=== PATIENT | female | born 1990 | race Caucasian/White ===

== ENCOUNTER 2016-05-31 20:59 | Emergency (ER) | payer OTHER ==
[~2016-05-31 20:59] MED LIST: ALPRAZOLAM0.5 MG PO; ESCITALOPRAM20 MG PO; FIORICET 325 MG1 TAB PO; ONDANSETRON8 M1 SL; PERCOCET 5-3251 EACH PO; PRENATAL1 TA2 PO; ZOFRAN ODT4 M1 SL; ZOFRAN4 MG PO; [UNRECOGNIZED DRUG - OTHER] PO
--- NOTE | 2016-05-31 21:18 | ED GI/GU/ABDOMINAL COMPLAINT ---
See Addendum History of Present Illness General Chief Complaint: General Adult Stated Complaint: GALLBLADDER PAIN, X 1 DAY Source: patient Exam Limitations: no limitations Vital Signs & Intake/Output Vital Signs & Intake/Output Vital Signs Date Time Temp Pulse Resp B/P Pulse O2 O2 Flow FiO2 Ox Delivery Rate 05/31 2312 98.6 88 18 110/60 98 Room Air 05/31 2113 98 Room Air 05/31 2103 97.3 92 20 101/69 97 Allergies Coded Allergies: buspirone (From BUSPAR) (PER PT HAS OPPOSITE EFFECT MAKES ME MORE ANXIOUS ) clarithromycin (From BIAXIN) (GI UPSET 05/31/16) adhesive (RASH/BLISTERS 11/26/15) lorazepam (COMBATIVE 11/26/15) Reconcile Medications Acetaminophen/Butalbital/Caf (Fioricet 325 MG-50 MG-40 MG) 1 TAB TAB 1 TAB PO PRN MIGRAINE (Reported) Alprazolam 0.5 MG TABLET 1 TAB PO BID PRN ANXIETY (Reported) Aripiprazole (Abilify) 2 MG TABLET 1 TAB PO DAILY MENTAL HEALTH (Reported) Escitalopram Oxalate 20 MG TABLET 1 TAB PO DAILY ANXIETY (Reported) Hydroxyzine Pamoate 25 MG CAPSULE 1 CAP PO BID PRN ANXIETY (Reported) Ketorolac Tromethamine 10 MG TABLET 1 TAB PO TID PRN PAIN Levothyroxine Sodium (Synthroid) 150 MCG TABLET 1 TAB PO DAILY THYROID ( Reported) Ondansetron HCl (Zofran) 4 MG TABLET 1 TAB PO Q6-8P PRN NAUSEA Oxycodone HCl/Acetaminophen (Percocet 5-325 MG Tablet) 5 MG-325 MG TABLET 1 TAB PO BID PRN PAIN Pantoprazole Sodium 40 MG TABLET. 1 TAB PO DAILY GI (Reported) Triage Note: PER PT CO "GALL BLADDER PAIN X 24 HRS, NO PLAN FOR SURGERY, PT REPORTS USUALLY OCCURS 1-2 TIMES A YR. Triage Nurses Notes Reviewed? yes ? N Is pt currently ? No Onset: Gradual Duration: constant Timing: recent history Quality/Severity: moderate Severity Numbers: 7 Location: epigastric Radiation: RUQ Activities at Onset: eating HPI: Patient is a 26-year-old female with past medical history of opiate dependency, gallstones, hypothyroidism, anxiety who presents to emergency room stating that yesterday after eating dinner approximately 3 hours later she had acute onset of epigastric pain with mild radiation to right upper quadrant. Patient states that symptoms feel very similar to previous gallstone episodes. Patient has not followed up with a surgeon for her recurrent gallstones. Patient states that today she is able tolerate by mouth however eating and drinking makes pain worse and patient then has nausea due to the significant pain. No medications given prior to arrival. Denies fevers but does have chills. Denies any cough shortness of breath are pain jaw pain. Denies any dysuria hematuria vaginal bleeding vaginal discharge. Denies any recent NSAID use but does state that she has significant history remotely of this due to her 10 year abstinence from opiates. Denies any significant alcohol use. (GOVIND BESS) Past History Travel History Traveled to [place] past 21 day No Medical History Any Pertinent Medical History? see below for history Neurological: NONE EENT: NONE Cardiovascular: MYOCARDITIS Respiratory: NONE Gastrointestinal: GALL STONES Hepatic: NONE Renal: NONE Musculoskeletal: NONE Psychiatric: anxiety, depression, PTSD Endocrine: THYROID Surgical History Surgical History: appendectomy, Psychosocial History What is your primary language Mosotho Tobacco Use: Current Daily Use Daily Tobacco Use Amount/Type: => 5 Cigarettes daily Family History Hx Contributory? No (GOVIND BESS) Review of Systems Review of Systems Constitutional: Reports: see HPI, chills. EENTM: Reports: no symptoms. Respiratory: Reports: no symptoms. Cardiovascular: Reports: no symptoms. GI: Reports: see HPI, abdominal pain, nausea. Genitourinary: Reports: no symptoms. Musculoskeletal: Reports: no symptoms. Skin: Reports: no symptoms. Neurological/Psychological: Reports: no symptoms. Hematologic/Endocrine: Reports: no symptoms. Immunologic/Allergic: Reports: no symptoms. All Other Systems: Reviewed and Negative (GOVIDN BESS) Physical Exam Physical Exam General Appearance: no apparent distress, obese Gastrointestinal: normal bowel sounds, soft, MODERATE EPIGASTRIC TENDERNESS, NO RIGHT LOWER QUADRANT MILD RIGHT UPPER QUADRANT TENDERNESS NO PERITONEAL SIGNS NO REBOUND TENDERNESS Comments: HEENT: Normal EENT exam, extraocular motion intact, no nystagmus. Pupils equally round and reactive to light and accommodation. Nose is atraumatic. External auditory canal and Tympanic membranes clear. Pharynx normal. No swelling or edema. Neck: Supple, no lymphadenopathy, normal range of motion without pain or tenderness Back: Nontender, no CVA tenderness Cardiovascular: Regular rate and rhythms no murmurs rubs or gallops, normal JVP Respiratory: Chest nontender. No respiratory distress.breath sounds clear to auscultation bilaterally Extremity: No edema, no calf tenderness to palpation, normal and equal pulses. Neuro: Alert oriented x3, motor sensory normal, Skin: No appreciable rash on exposed skin, skin is warm and dry. Psych: Mood and affect is normal, memory and judgment is normal. Core Measures ACS in differential dx? No Severe Sepsis Present: No Septic Shock Present: No (ADRIÁN HERNANDEZ,GOVIND) Progress Differential Diagnosis: AAA, AMI, appendicitis, biliary colic, bowel obstruction , colon cancer, cholecystitis, diverticulitis, ectopic , endometritis, esophageal varices, gastritis, hepatitis, hernia, hemorrhoids, ischemic bowel, inflamm bowel dis, intrauterine , kidney stone, Kathy-Ton tear, ovarian cyst, ovarian torsion, pancreatitis, PID/cervicitis, peptic ulcer, PUD/ GERD, perforated viscous, SBO, threatened AB, UTI/pyelo Plan of Care: Orders Procedure Date/time Status Add-on Test (ER Only) 05/31 2211 Active HUMAN BETA HCG SCREEN 05/31 2148 Complete PARTIAL THROMBOPLASTIN TIME 05/31 2118 Complete PROTHROMBIN TIME 05/31 2118 Complete LIPASE 05/31 2118 Complete DIRECT BILIRUBIN 05/31 2118 Complete COMPREHENSIVE METABOLIC PANEL 05/31 2118 Complete CBC WITHOUT DIFFERENTIAL 05/31 2118 Complete AMYLASE 05/31 2118 Complete TYPE & SCREEN (NOT X-MATCH) 05/31 2118 Complete Laboratory Tests 05/31/162148: Anion Gap 12, Estimated GFR > 60, BUN/Creatinine Ratio 23.3, Glucose 75, Calcium 9.2, Total Bilirubin 0.4, Direct Bilirubin 0.3, AST 19, ALT 27, Alkaline Phosphatase 77, Total Protein 7.0, Albumin 3.9, Globulin 3.1, Albumin/Globulin Ratio 1.3, Amylase 45, Lipase 126, Total Beta HCG NEGATIVE 05/31/162147: PT 11.4, INR 1.09, APTT 34, CBC w Diff NO MAN DIFF REQ, RBC 4.18 L, MCV 92.4, MCH 30.6, RDW 14.0, MPV 8.0, Gran % 56.1, Lymphocytes % 34.5, Monocytes % 7.4, Eosinophils % 1.6, Basophils % 0.4, Absolute Granulocytes 4.2, Absolute Lymphocytes 2.6, Absolute Monocytes 0.6, Absolute Eosinophils 0.1, Absolute Basophils 0, PUBS MCHC 33.1 05/31/16 2120: Total Beta HCG Cancelled Patient currently is in no apparent distress however he does have concerns upon palpation of epigastric tenderness in which patient denies any significant recent NSAID use in which patient had requested to not receive opiates in which ketorolac will be administered and patient also was offered GI cocktail in which she states refused this medication. My suspicion of peptic ulcer is low however is of my differential. There is suspicion of gallbladder involvement. 05/31/2016 10:17:17 PM- patient had no change of symptoms with ketorolac and which morphine will be offered and given in which patient also has a family member to take her home 05/31/2016 10:31:16 PM patient's initial blood work was unremarkable for concerns at this time of cholecystitis however CT scan currently pending. Patient also had significant resolution of pain and nausea with medications administered in the emergency room Discussed hand off with Dr. Edmond (GOVIND BESS) Initial ED EKG: none Hand-Off Endorsed To: FELICIANO VIRGEN,MICHAEL Arthur Endorsed Time: 2255 Pending: CT (GOVIND BESS) Departure Departure Disposition: HOME OR SELF CARE Condition: Stable Clinical Impression Primary Impression: Biliary colic Secondary Impressions: Abdominal pain, Gallstone Referrals: MARIANA VIRGEN,NORMA GONZALEZ MD,AUDIE (PCP/Family) Additional Instructions: As discussed begin the prescription of ketorolac for pain and inflammation. Begin the prescription of Percocet for breakthrough pain relief. Begin the prescription of Zofran for future nausea. Begin a 24-hour clear liquid and bland diet. Please avoid fatty foods as this may worsen your symptoms. Tomorrow please follow up and establish Norma Velázquez MD-surgeon for further evaluation treatment. If symptoms worsen or if he develop a concerning new symptom return to emergency room immediately Prescription of ketorolac and Zofran are waiting at [facility] pharmacy Follow-up with your scheduled outpatient ultrasound tomorrow Departure Forms: Customer Survey General Discharge Information Prescriptions: Current Visit Scripts Oxycodone HCl/Acetaminophen (Percocet 5-325 MG Tablet) 1 TAB PO BID PRN PAIN #8 TAB Ketorolac Tromethamine 1 TAB PO TID PRN PAIN #15 TAB Ondansetron HCl (Zofran) 1 TAB PO Q6-8P PRN NAUSEA #15 TAB (GOVIND BESS) PA/INNER LAYER SCRUBBER TENDER Co-Sign Statement Statement: ED Attending supervision documentation- [] I saw and evaluated the patient. I have also reviewed all the pertinent lab results and diagnostic results. I agree with the findings and the plan of care as documented in the PA's/INNER LAYER SCRUBBER TENDER's documentation. [X] I have reviewed the ED Record and agree with the PA's/INNER LAYER SCRUBBER TENDER's documentation. [] Additions or exceptions (if any) to the PAs/INNER LAYER SCRUBBER TENDER's note and plan are summarized below: [] (FELICIANO VIRGEN,MICHAEL Arthur)
[2016-05-31] MEDS ORDERED: HYDROXYZINE PAM25 M2 PO (21:43)
[2016-05-31] MEDS ORDERED: SYNTHROID150 MCG PO (21:43)
[2016-05-31] MEDS ORDERED: ABILIFY2 MG PO (21:43)
[2016-05-31] MEDS ORDERED: ALPRAZOLAM0.5 M4 PO (21:44)
[2016-05-31] MEDS ORDERED: PANTOPRAZOLE SO40 M1 PO (21:44)
[2016-05-31 22:00] LABS: ABSOLUTE BASOPHIL COUNT 0 /CUMM (0.0-0.2); ABSOLUTE EOSINOPHIL COUNT 0.1 /CUMM (0.0-0.7); ABSOLUTE GRANULOCYTE CT 4.2 /CUMM (1.4-6.5); ABSOLUTE LYMPH COUNT 2.6 /CUMM (1.2-3.4); ABSOLUTE MONOCYTE COUNT 0.6 /CUMM (0.10-0.60); BASOPHIL % 0.4 % (0.0-2.0); EOSINOPHIL % 1.6 % (0-5); GRANULOCYTE % 56.1 % (42.2-75.2); HEMATOCRIT 38.6 % (37-47); MEAN CORPUSCULAR HGB 30.6 PG (27.0-31.0); MEAN CORPUSCULAR HGB CONC 33.1 G/DL (33.0-37.0); MEAN CORPUSCULAR VOLUME 92.4 FL (81.0-99.0); PLATELET COUNT 324 /CUMM (130-400); RED BLOOD CELL CT 4.18 /CUMM (4.20-5.40); WHITE BLOOD CELL COUNT 7.5 /CUMM (4.8-10.8)
[2016-05-31 22:11] LABS: PT 11.4 SEC (9.4-12.5); PTT 34 SEC (25-37)
[2016-05-31] MEDS ORDERED: KETOROLAC TROME10 M1 PO (22:28)
[2016-05-31] MEDS ORDERED: ZOFRAN4 M2 PO (22:28)
[2016-05-31] MEDS ORDERED: PERCOCET 5-3251 EACH PO (22:28)
--- NOTE | 2016-05-31 23:01 | CT SCAN REPORT ---
EXAMINATION: CT ABDOMEN AND PELVIS WITH CONTRAST CLINICAL INFORMATION: Right upper quadrant pain and epigastric pain. COMPARISON: CT scan abdomen pelvis 11/26/2015 TECHNIQUE: Multidetector volumetric imaging was performed of the abdomen and pelvis after the IV administration of 95 mL of Optiray 320 intravenous contrast. Sagittal and coronal reformatted images were obtained on the technologist's workstation. DLP: 1345.18 mGy-cm. FINDINGS: LUNG BASES: The visualized lung bases are unremarkable. LIVER, GALLBLADDER, AND BILIARY TREE: The liver is normal in size, shape, and attenuation. No focal hepatic lesion or biliary ductal dilatation is present. Multiple isointense gallstones within the gallbladder. No edema around the gallbladder. No bile duct dilatation. The extra hepatic CBD measures 5 mm at the danitza hepatis and tapers to the ampulla. PANCREAS: Unremarkable. SPLEEN: Unremarkable. ADRENAL GLANDS: Unremarkable. KIDNEYS AND URETERS: The kidneys are normal in size, shape, and attenuation. No hydronephrosis, hydroureter, or calculi seen. No perinephric stranding. BLADDER: Unremarkable. GASTROINTESTINAL TRACT: The small and large bowel are unremarkable. History of appendectomy. Suture material adjacent to the cecum. ABDOMINAL WALL: No significant hernia is appreciated. LYMPH NODES: Normal. VASCULAR: Unremarkable. PELVIC VISCERA: Unremarkable. OSSEOUS STRUCTURES: Unremarkable. IMPRESSION: No acute abnormality CT scan abdomen pelvis. There is cholelithiasis. Status post appendectomy. No change since prior CAT scan.
[2016-05-31 23:12] VITALS: BP 110/60
== END 2016-05-31 23:12 ==
LOC: ERH 20:59
PROVIDERS: Physician Assistant
DX: K80.50 Calculus of bile duct without cholangitis or cholecystitis without obstruction (principal); K80.20 Calculus of gallbladder without cholecystitis without obstruction
CPT/HCPCS: 74177; 96361; 96374; 96375; J1885; J2405; J2765

== ENCOUNTER 2016-06-02 17:46 | Observation (INO) | payer OTHER ==
[~2016-06-02] VITALS: Ht 165.1 cm; Wt 119.7 kg
[~2016-06-02 17:46] MED LIST changes: +ABILIFY2 MG PO; +ALPRAZOLAM0.5 M4 PO; +HYDROXYZINE PAM25 M2 PO; +KETOROLAC TROME10 M1 PO; +PANTOPRAZOLE SO40 M1 PO; +SYNTHROID150 MCG PO; +ZOFRAN4 M2 PO
--- NOTE | 2016-06-02 17:56 | NUR ---
PT STATES SHE IS HAVING A GALLBLADDER ATTACK. PT REPORTS BEING SEEN A FEW DAYS AGO FOR SAME. PT CALLED DR. BAGI, SHE HAS APPT. FOR SURGERY IN 9 DAYS HE TOLD HER TO COME TO ED.
--- NOTE | 2016-06-02 18:50 | ED GI/GU/ABDOMINAL COMPLAINT ---
History of Present Illness General Chief Complaint: Abdominal Pain/Flank Pain Stated Complaint: ABD PAIN Source: patient, family, old records Exam Limitations: no limitations Vital Signs & Intake/Output Vital Signs & Intake/Output Vital Signs Date Time Temp Pulse Resp B/P Pulse O2 O2 Flow FiO2 Ox Delivery Rate 06/02 1915 Room Air 06/02 1755 96.8 73 16 107/67 95 Room Air Allergies Coded Allergies: buspirone (From BUSPAR) (PER PT HAS OPPOSITE EFFECT MAKES ME MORE ANXIOUS ) clarithromycin (From BIAXIN) (GI UPSET 05/31/16) adhesive (RASH/BLISTERS 11/26/15) lorazepam (COMBATIVE 11/26/15) Reconcile Medications Acetaminophen/Butalbital/Caf (Fioricet 325 MG-50 MG-40 MG) 1 TAB TAB 1 TAB PO PRN MIGRAINE (Reported) Alprazolam 0.5 MG TABLET 1 TAB PO BID PRN ANXIETY (Reported) Aripiprazole (Abilify) 2 MG TABLET 1 TAB PO DAILY MENTAL HEALTH (Reported) Escitalopram Oxalate 20 MG TABLET 1 TAB PO DAILY ANXIETY (Reported) Hydroxyzine Pamoate 25 MG CAPSULE 1 CAP PO BID PRN ANXIETY (Reported) Ketorolac Tromethamine 10 MG TABLET 1 TAB PO TID PRN PAIN Levothyroxine Sodium (Synthroid) 150 MCG TABLET 1 TAB PO DAILY THYROID ( Reported) Ondansetron HCl (Zofran) 4 MG TABLET 1 TAB PO Q6-8P PRN NAUSEA Oxycodone HCl/Acetaminophen (Percocet 5-325 MG Tablet) 5 MG-325 MG TABLET 1 TAB PO BID PRN PAIN Pantoprazole Sodium 40 MG TABLET. 1 TAB PO DAILY GI (Reported) Triage Note: PT STATES SHE IS HAVING A GALLBLADDER ATTACK. PT REPORTS BEING SEEN A FEW DAYS AGO FOR SAME. PT CALLED DR. BAIG, SHE HAS APPT. FOR SURGERY IN 9 DAYS HE TOLD HER TO COME TO ED. Triage Nurses Notes Reviewed? yes ? N Is pt currently ? No HPI: Patient has known gallstones. Patient is scheduled to have surgery on June 11 however she has recurrent pain. Patient has been taking Toradol and Percocet for the pain. The portal does not help the pain at all in the Percocet only decreases the pain a little bit however the patient does not like the way that Percocet made her feel. Patient called her surgeon who told her to come to the emergency room. Patient states that she transiently gets nauseous but there is been no vomiting. The right upper quadrant and is sharp but crampy in nature. The pain is currently 10 out of 10. There is no radiation of the pain. Past History Travel History Traveled to [place] past 21 day No Medical History Any Pertinent Medical History? see below for history Neurological: NONE EENT: NONE Cardiovascular: MYOCARDITIS Respiratory: NONE Gastrointestinal: GALL STONES Hepatic: NONE Renal: NONE Musculoskeletal: NONE Psychiatric: anxiety, depression, PTSD Endocrine: hypothyroidism Surgical History Surgical History: appendectomy, Psychosocial History What is your primary language Tajik Tobacco Use: Current Daily Use Daily Tobacco Use Amount/Type: => 5 Cigarettes daily ETOH Use: occasional use Illicit Drug Use: denies illicit drug use Family History Hx Contributory? No Review of Systems Review of Systems Constitutional: Reports: no symptoms. EENTM: Reports: no symptoms. Respiratory: Reports: no symptoms. Cardiovascular: Reports: no symptoms. GI: Reports: see HPI, abdominal pain, nausea. Genitourinary: Reports: no symptoms. Musculoskeletal: Reports: no symptoms. Skin: Reports: no symptoms. Neurological/Psychological: Reports: no symptoms. Hematologic/Endocrine: Reports: no symptoms. Immunologic/Allergic: Reports: no symptoms. All Other Systems: Reviewed and Negative Physical Exam Physical Exam General Appearance: well developed/nourished, alert, awake, mild distress Head: atraumatic, normal appearance Eyes: Bilateral: PERRL, EOMI, other (ANICTERIC). Ears, Nose, Throat, Mouth: hearing grossly normal, DRY MUCOSA Neck: normal inspection, supple, full range of motion Respiratory: normal breath sounds, chest non-tender, no respiratory distress, lungs clear Cardiovascular: regular rate/rhythm, normal peripheral pulses Gastrointestinal: normal bowel sounds, soft, no organomegaly, tenderness (RUQ), NO Abdi SIGN Back: normal inspection, normal range of motion, NO cva TENDERNESS Extremities: normal range of motion Neurologic/Psych: no motor/sensory deficits, awake, alert, oriented x 3, normal mood/affect Skin: intact, normal color, warm/dry Core Measures ACS in differential dx? No Severe Sepsis Present: No Septic Shock Present: No Progress Differential Diagnosis: biliary colic, cholecystitis Plan of Care: Orders Procedure Date/time Status Place in observation 06/02 2027 Active LIPASE 06/02 1848 Complete COMPREHENSIVE METABOLIC PANEL 06/02 1848 Complete CBC WITHOUT DIFFERENTIAL 06/02 1848 Complete AMYLASE 06/02 1848 Complete Laboratory Tests 06/02/161924: Anion Gap 11, Estimated GFR > 60, BUN/Creatinine Ratio 18.6, Glucose 81, Calcium 8.8, Total Bilirubin 0.3, AST 36, ALT 46, Alkaline Phosphatase 75, Total Protein 6.1 L, Albumin 3.5, Globulin 2.6, Albumin/Globulin Ratio 1.3, Amylase 34, Lipase 99, CBC w Diff NO MAN DIFF REQ, RBC 3.86 L, MCV 91.0, MCH 30.8, RDW 14.3 , MPV 8.1, Gran % 46.8, Lymphocytes % 43.5, Monocytes % 7.4, Eosinophils % 1.7, Basophils % 0.6, Absolute Granulocytes 2.9, Absolute Lymphocytes 2.7, Absolute Monocytes 0.5, Absolute Eosinophils 0.1, Absolute Basophils 0, PUBS MCHC 33.9 Initial ED EKG: none Comments: Labs, CAT scan and ultrasound reviewed from the past 2 days. PT STILL IN PAIN DESPITE IV MORPHINE. WILL GIVE A SECOND DOSE. Departure Departure Disposition: STILL A PATIENT Condition: Stable Clinical Impression Primary Impression: Cholelithiasis Qualifiers: Cholelithiasis location: bile duct Cholecystitis presence: without cholecystitis Referrals: AUDIE GONZALEZ MD (PCP/Family) Departure Forms: Customer Survey General Discharge Information Observation Note Spoke With: KATIE VIRGEN,ZEYNEP Gong Physician Advisor Notified: FELICIANO VIRGEN,MICHAEL Arthur Place Patient In: Non-ED OBS Care Area Rationale for Observation: My rational for observation is as follows [IV pain control, IV fluids, patient will require a cholecystectomy.].
--- NOTE | 2016-06-02 19:15 | NUR ---
RECIEVED TO ROOM 3. SEEN BY DR WIGGINS. IV STARTED, MORPHINE GIVEN. PT GOT NAUSEATED WITH MORPHINE AND DR WIGGINS ORDERED ZOFRAN. PT WITH POOR VEIN SELECTION FOR IV AND LABS. TERESA MIRZA IN ROOM CURRENTLY ATTEMPTING TO DRAW LABS.
--- NOTE | 2016-06-02 19:27 | NUR ---
BLOOD SENT TO THE LAB SST,LAV,BLUE MARTINEZ PINK
[2016-06-02 19:37] LABS: ABSOLUTE BASOPHIL COUNT 0 /CUMM (0.0-0.2); ABSOLUTE EOSINOPHIL COUNT 0.1 /CUMM (0.0-0.7); ABSOLUTE GRANULOCYTE CT 2.9 /CUMM (1.4-6.5); ABSOLUTE LYMPH COUNT 2.7 /CUMM (1.2-3.4); ABSOLUTE MONOCYTE COUNT 0.5 /CUMM (0.10-0.60); BASOPHIL % 0.6 % (0.0-2.0); EOSINOPHIL % 1.7 % (0-5); GRANULOCYTE % 46.8 % (42.2-75.2); HEMATOCRIT 35.2 % (37-47); MEAN CORPUSCULAR HGB 30.8 PG (27.0-31.0); MEAN CORPUSCULAR HGB CONC 33.9 G/DL (33.0-37.0); MEAN PLATELET VOLUME 8.1 FL (7.4-10.4); PLATELET COUNT 265 /CUMM (130-400); RBC DISTRIBUTION WIDTH 14.3 % (11.5-14.5); RED BLOOD CELL CT 3.86 /CUMM (4.20-5.40); WHITE BLOOD CELL COUNT 6.1 /CUMM (4.8-10.8)
--- NOTE | 2016-06-02 21:13 | NUR ---
PT GOING TO ROOM 219-1
--- NOTE | 2016-06-02 21:24 | NUR ---
PT SPOKE WITH DR WIGGINS. ASKED FOR NICOTINE GUM. MED REC COMPLETED. MEDS FLAGGED TO COMMUNICATE THAT SHE TAKES THEM AT .
[2016-06-02 22:00] VITALS: BP 96/60
--- NOTE | 2016-06-02 22:47 | Admission Core Measures ---
Admission Lab Results I reviewed the following labs: Laboratory Tests 06/02 1924 Chemistry Sodium (137 - 145 mmol/L) 140 Potassium (3.5 - 5.1 mmol/L) 3.6 Chloride (98 - 107 mmol/L) 102 Carbon Dioxide (22 - 30 mmol/L) 28 Anion Gap (5 - 16) 11 BUN (7 - 17 mg/dL) 13 Creatinine (0.5 - 1.0 mg/dL) 0.7 Estimated GFR (>60 ml/min) > 60 BUN/Creatinine Ratio (7 - 25 %) 18.6 Glucose (65 - 99 mg/dL) 81 Calcium (8.4 - 10.2 mg/dL) 8.8 Total Bilirubin (0.2 - 1.3 mg/dL) 0.3 AST (14 - 36 U/L) 36 ALT (9 - 52 U/L) 46 Alkaline Phosphatase (<127 U/L) 75 Total Protein (6.3 - 8.2 g/dL) 6.1 L Albumin (3.5 - 5.0 g/dL) 3.5 Globulin (1.9 - 4.2 gm/dL) 2.6 Albumin/Globulin Ratio (1.1 - 2.2 %) 1.3 Amylase (30 - 110 U/L) 34 Lipase (23 - 300 U/L) 99 Hematology CBC w Diff NO MAN DIFF REQ WBC (4.8 - 10.8 /CUMM) 6.1 RBC (4.20 - 5.40 /CUMM) 3.86 L Hgb (12.0 - 16.0 G/DL) 11.9 L Hct (37 - 47 %) 35.2 L MCV (81.0 - 99.0 FL) 91.0 MCH (27.0 - 31.0 PG) 30.8 RDW (11.5 - 14.5 %) 14.3 Plt Count (130 - 400 /CUMM) 265 MPV (7.4 - 10.4 FL) 8.1 Gran % (42.2 - 75.2 %) 46.8 Lymphocytes % (20.5 - 51.1 %) 43.5 Monocytes % (1.7 - 9.3 %) 7.4 Eosinophils % (0 - 5 %) 1.7 Basophils % (0.0 - 2.0 %) 0.6 Absolute Granulocytes (1.4 - 6.5 /CUMM) 2.9 Absolute Lymphocytes (1.2 - 3.4 /CUMM) 2.7 Absolute Monocytes (0.10 - 0.60 /CUMM) 0.5 Absolute Eosinophils (0.0 - 0.7 /CUMM) 0.1 Absolute Basophils (0.0 - 0.2 /CUMM) 0 PUBS MCHC (33.0 - 37.0 G/DL) 33.9 Admission Meds I reviewed the following Meds: Current Medications Sig/Char Start time Last Medication Dose Stop Time Status Admin Acetaminophen/ 1 TAB Q4P PRN 06/02 2200 AC Butalbital/Caffeine (Fioricet) Alprazolam 0.5 MG BID PRN 06/02 2200 AC (Xanax) 06/09 2158 Aripiprazole 2 MG DAILY 06/03 1000 AC (Abilify) Escitalopram Oxalate 20 MG AT BEDTIME 06/020 AC (Lexapro) Levothyroxine Sodium 0.15 MG DAILY AC 06/03 1000 AC (Synthroid) Ondansetron HCl 4 MG Q8P PRN 06/02 2100 AC (Zofran) Pantoprazole Sodium 40 MG DAILY 06/03 1000 AC (Protonix) Acute Coronary Syndrome Inclusion Criteria ACS Diagnosis No Inpatient Core Measures LDL Reminder: If No, please order W/I first 24hr of stay Congestive Heart Failure Inclusion Criteria CHF Diagnosis No Cerebrovascular accident Inclusion Criteria CVA/TIA Diagnosis No Inpatient Core Measures Bedside Swallow Eval Reminder: If BSE failed, place ST order Antithrombotic Reminder: Order Antithrombotic Medication by end of day 2 Antithrombotic Reminder: Document Reason Antithrombotic Not ordered by end of day 2 AFIB/Flutter Reminder: If Present, add to problem list AFIB/Flutter Reminder: Order Anticoag Medication for pts with AFIB/Flutter Atherosclerosis Reminder: If Present, add to problem list LDL Reminder: If No, please order W/I first 24hr of stay PT Order Reminder: If No, please order Venous thromboembolism Inpatient Core Measures VTE Risk Factors: Obesity VTE Prophylaxis Ordered Inpt Mech & Pharm No Mech VTE prophylaxis d/t No contraindications No VTE Pharm Prophylaxis d/t No contraindications Inclusion Criteria - Per Current guidelines, there needs to be overlap - treatment for the first 5 days of Warfarin therapy. - Parenteral Anticoagulation (IV or SC) needs to be - given along with Warfarin therapy. VTE Diagnosis No VTE Type NONE VTE Confirmed by (Test) NONE Problem List As ranked by this Provider includes Assessment & Plan 1. Cholelithiasis 2. Biliary colic HOME MEDS Home Med List Acetaminophen/Butalbital/Caf (Fioricet 325 MG-50 MG-40 MG) 1 TAB TAB 1 TAB PO PRN MIGRAINE (Reported) Alprazolam 0.5 MG TABLET 1 TAB PO BID PRN ANXIETY (Reported) Aripiprazole (Abilify) 2 MG TABLET 1 TAB PO DAILY MENTAL HEALTH (Reported) Escitalopram Oxalate 20 MG TABLET 1 TAB PO DAILY ANXIETY (Reported) Hydroxyzine Pamoate 25 MG CAPSULE 1 CAP PO BID PRN ANXIETY (Reported) Ketorolac Tromethamine 10 MG TABLET 1 TAB PO TID PRN PAIN Levothyroxine Sodium (Synthroid) 150 MCG TABLET 1 TAB PO DAILY THYROID ( Reported) Ondansetron HCl (Zofran) 4 MG TABLET 1 TAB PO Q6-8P PRN NAUSEA Oxycodone HCl/Acetaminophen (Percocet 5-325 MG Tablet) 5 MG-325 MG TABLET 1 TAB PO BID PRN PAIN Pantoprazole Sodium 40 MG TABLET.DR 1 TAB PO DAILY GI (Reported)
--- NOTE | 2016-06-02 22:56 | History & Physical ---
ELIZA PRASAD 06/02/16 5949: General Information and HPI MD Statement: I have seen and personally examined ELROY BOONE and documented this H&P. The patient is a 26 year old F who presented with a patient stated chief complaint of [abdominal pain]. Source of Information: patient, family Exam Limitations: no limitations History of Present Illness: Ms. Boone is a 26-year-old female with past medical history of depression, anxiety , hypothyroidism, GERD, obesity presents with known biliary colic associated with cholelithiasis. She was scheduled for laparoscopic cholecystectomy on June 11 however was seen with increased abdominal pain over the weekend and discharged with Percocet by mouth. Over the past 2 days she's complained of increased right upper quadrant pain with no relief from Percocet medication with nausea and vomiting. She has no change in her bowel or bladder habits. She has no other complaints. Allergies/Medications Allergies: Coded Allergies: buspirone (From BUSPAR) (PER PT HAS OPPOSITE EFFECT MAKES ME MORE ANXIOUS ) clarithromycin (From BIAXIN) (GI UPSET 05/31/16) adhesive (RASH/BLISTERS 11/26/15) lorazepam (COMBATIVE 11/26/15) Past History Travel History Traveled to [place] past 21 day No Medical History Blood Transfusion Hx: No Neurological: NONE EENT: NONE Cardiovascular: MYOCARDITIS Respiratory: NONE Gastrointestinal: GALL STONES Hepatic: NONE Renal: NONE Musculoskeletal: NONE Psychiatric: anxiety, depression, PTSD Endocrine: hypothyroidism Blood Disorders: NONE Cancer(s): NONE MACHINE OR MACHINERY MECHANIC/Reproductive: NONE Isolation History: Standard Surgical History Surgical History: appendectomy, Past Family/Social History Psychosocial History Smoking Status: Current Everyday Smoker ETOH Use: occasional use Illicit Drug Use: denies illicit drug use Review of Systems Review of Systems Constitutional: Denies: no symptoms, see HPI, chills, diaphoresis, fever, malaise, weakness, unexplained weight loss. Exam & Diagnostic Data Last 24 Hrs of Vital Signs/I&O Vital Signs Date Time Temp Pulse Resp B/P Pulse O2 O2 Flow FiO2 Ox Delivery Rate 06/02 2199 97.8 56 18 96/60 95 Room Air 06/026 96.7 60 16 115/57 96 Room Air 06/02 1916 Room Air 06/02 1755 96.8 73 16 107/67 95 Room Air Physical Exam General Appearance Alert, Oriented X3 Skin No Rashes HEENT PERRLA Cardiovascular Regular Rate, Normal S1, Normal S2 Lungs Clear to Auscultation, Normal Air Movement Abdomen Normal Bowel Sounds, Soft, right upper quadrant tenderness to deep palpation, no evidence of peritonitis. Neurological Strength at 5/5 X4 Ext, Normal Tone Extremities No Edema, Normal Pulses Vascular Normal Pulses Last 24 Hrs of Labs/Gregory: Laboratory Tests 06/02/16 1925: Anion Gap 11, Estimated GFR > 60, BUN/Creatinine Ratio 18.6, Glucose 81, Calcium 8.8, Total Bilirubin 0.3, AST 36, ALT 46, Alkaline Phosphatase 75, Total Protein 6.1 L, Albumin 3.5, Globulin 2.6, Albumin/Globulin Ratio 1.3, Amylase 34, Lipase 99, CBC w Diff NO MAN DIFF REQ, RBC 3.86 L, MCV 91.0, MCH 30.8, RDW 14.3 , MPV 8.1, Gran % 46.8, Lymphocytes % 43.5, Monocytes % 7.4, Eosinophils % 1.7, Basophils % 0.6, Absolute Granulocytes 2.9, Absolute Lymphocytes 2.7, Absolute Monocytes 0.5, Absolute Eosinophils 0.1, Absolute Basophils 0, PUBS MCHC 33.9 Diagnostic Data Other Results SERVICE DATE: 06/01/16 EXAM TYPE: US - US-LIMITED ABDOMEN EXAMINATION: US ABDOMEN LIMITED CLINICAL INFORMATION: Unspecified abdominal pain.. COMPARISON: CT abdomen and pelvis 05/31/2015 TECHNIQUE: Real-time imaging of the right upper quadrant abdominal viscera. Limited exam due to patient body habitus. FINDINGS: PANCREAS: The visualized pancreatic head and body are unremarkable, the tail is secured by bowel gas. LIVER: There is mild diffuse increased liver parenchymal echogenicity, which could reflect hepatic steatosis. The liver is normal in size and contour. No biliary ductal dilatation. GALLBLADDER: The gallbladder is physiologically distended. Multiple mobile gallstones are present. No evidence of gallbladder wall thickening or pericholecystic fluid. COMMON BILE DUCT: Normal in caliber measuring 0.4 cm in diameter. RIGHT KIDNEY: Normal. No hydronephrosis. No renal calculi or focal parenchymal lesions. The kidney measures 10.2 cm in maximum dimension. FREE FLUID: None. IMPRESSION: 1. Cholelithiasis. 2. Mildly increased liver parenchymal echogenicity could reflect underlying hepatic steatosis. DICTATED BY: DAIANA THOMPSON MD DATE/TIME DICTATED:06/01/16931 CHEMICAL PROCESSING TECHNICIAN:JULIA DATE/TIME TRANSCRIBED:06/01/16931 Assessment/Plan Assessment: Mrs. Boone is 26-year-old female with right upper quadrant abdominal pain associated with biliary colic and cholelithiasis presents with intractable abdominal pain controlled by by mouth medication given to her from an ER visit 2 days ago. She has since returned with increased nausea and vomiting along with increased pain. After discussion with Dr. Gutierrez the patient will be admitted to the surgical service under his care and surgical intervention will be discussed with himself and Dr. Baig in the morning. Plan Nothing by mouth, IV fluid, IV pain medication. As Ranked By This Provider Problem List: 1. Biliary colic 2. Cholelithiasis Qualifiers Cholelithiasis location: bile duct Cholecystitis presence: without cholecystitis Core Measures/Miscellaneous Acute Coronary Syndrome ACS Diagnosis: No Cerebrovascular Accident CVA/TIA Diagnosis: No Congestive Heart Failure CHF Diagnosis: No Venous Thromboembolism VTE Risk Factors: Obesity VTE Prophylaxis Ordered Inpt: Mech & Pharm No Mech VTE prophylaxis d/t: No contraindications No VTE Pharm Prophylaxis d/t: No contraindications VTE Diagnosis: No VTE Type: NONE VTE Confirmed by (Test): NONE Severe Sepsis Severe Sepsis Present: No Septic Shock Septic Shock Present: No Miscellaneous Documentation Attending Case Discussed With: KATIE VIRGEN,ZEYNEP Gong Primary Care Physician: AUDIE GONZALEZ MD Patient sees these Specialists None known Level of Patient Care: General Medicine BRIAN BAIG MD 06/03/16 0947: General Information and HPI Allergies/Medications Home Med list Acetaminophen/Butalbital/Caf (Fioricet 325 MG-50 MG-40 MG) 1 TAB TAB 1 TAB PO PRN MIGRAINE (Reported) Alprazolam 0.5 MG TABLET 1 TAB PO BID PRN ANXIETY (Reported) Aripiprazole (Abilify) 2 MG TABLET 1 TAB PO DAILY MENTAL HEALTH (Reported) Escitalopram Oxalate 20 MG TABLET 1 TAB PO DAILY ANXIETY (Reported) Hydroxyzine Pamoate 25 MG CAPSULE 1 CAP PO BID PRN ANXIETY (Reported) Ketorolac Tromethamine 10 MG TABLET 1 TAB PO TID PRN PAIN Levothyroxine Sodium (Synthroid) 150 MCG TABLET 1 TAB PO DAILY THYROID ( Reported) Ondansetron HCl (Zofran) 4 MG TABLET 1 TAB PO Q6-8P PRN NAUSEA Oxycodone HCl/Acetaminophen (Percocet 5-325 MG Tablet) 5 MG-325 MG TABLET 1-2 TAB PO Q4P PRN PAIN Oxycodone HCl/Acetaminophen (Percocet 5-325 MG Tablet) 5 MG-325 MG TABLET 1 TAB PO BID PRN PAIN Pantoprazole Sodium 40 MG TABLET. 1 TAB PO DAILY GI (Reported) Attending MD Review Statement Attending Statement Attending MD Statement: examined this patient, discussed with family, reviewed images Attending Assessment/Plan: Patient well known to me from previous encounter in the office. She was scheduled for elective laparoscopic cholecystectomy next week but now presents with unrelenting abdominal pain. We will proceed with admitted to the hospital for observation and cholecystectomy in the morning.
--- NOTE | 2016-06-03 00:10 | NUR ---
LATE ENTRY: PATIENT ARRIVED TO FLOOR AT 2144 FROM ER, DX CHOLELITHIASIS VS 97.8 56 18 96/60 95% ROOM AIR A&O, LCTA, INDEPENDENT. PAIN TO MID UPPER QUADRANT RADIATING TO THE RUQ, 09/29. NPO AT MIDNIGHT, FOR POSSIBLE SURGERY ON 06/03/16. IV #20 TO LF, WITH D5 1/2 NS @ 75 ML/HR RUNNING. ORIENTED TO ROOM AND CALL BARAJAS. CONTINUE TO MONITOR.
[2016-06-03 00:20] VITALS: BP 100/68
[2016-06-03] MEDS ORDERED: PERCOCET 5-3251 EACH PO (09:16)
--- NOTE | 2016-06-03 09:18 | Patient Discharge Instructions ---
Discharge Instructions General Discharge Information You were seen/treated for: BILIARY COLIC You had these procedures: LAPAROSCOPIC CHOLECYSTECTOMY Watch for these problems: INCREASED PAIN, REDNESS OR DRAINAGE FROM YOUR INCISIONS, FEVER GREATER THAN 101F , CHEST PAIN OR SHORTNESS OF BREATH No bath, but you may shower: Yes Other wound care: REMOVE BANDAIDS IN 2 DAYS. LEAVE WHITE STRIPS ON. THEY WILL FALL OFF THEMSELVES WITHIN THE WEEK. IF THEY DO NOT, THEN YOU CAN PEEL THEM OFF. YOU CAN SHOWER WITH STRIPS ON. PAT THEM DRY AND DO NOT RUB THEM IT WILL HURT. Diet Continue normal diet: Yes Activity Activity Self Limited: Yes Pounds, do NOT lift more than: 10 Acute Coronary Syndrome Inclusion Criteria At DC or during hospital stay patient has or had the following: ACS DIAGNOSIS No Discharge Core Measures Meds if any: Prescribed or Continued at Discharge Meds if any: NOT Prescribed or Continued at Discharge Congestive Heart Failure Inclusion Criteria At DC or during hospital stay patient has or had the following: CHF DIAGNOSIS No Discharge Core Measures Meds if any: Prescribed or Continued at Discharge Meds if any: NOT Prescribed or Continued at Discharge Cerebrovascular accident Inclusion Criteria At DC or during hospital stay patient has or had the following: CVA/TIA Diagnosis No Discharge Core Measures Meds if any: Prescribed or Continued at Discharge Meds if any: NOT Prescribed or Continued at Discharge Venous thromboembolism Inclusion Criteria VTE Diagnosis No VTE Type NONE VTE Confirmed by (Test) NONE Discharge Core Measures - Per Current guidelines, there needs to be overlap - treatment for the first 5 days of Warfarin therapy. - If discharged on Warfarin prior to 5 days of - overlap therapy, the patient will need to be - assessed for post discharge needs including - *Post discharge parental anticoagulation - *Warfarin and/or parental anticoagulation education - *Follow up date to check INR post discharge At least 5 days overlap therapy as Inpatient No Meds if any: Prescribed or Continued at Discharge Note: Overlap Therapy is Warfarin and Anticoagulant Meds if any: NOT Prescribed or Continued at Discharge
--- NOTE | 2016-06-03 09:51 | Operative Report ---
See Addendum Operative/Inv Procedure Report Surgery Date: 06/03/16 Name of Procedure: Laparoscopic cholecystectomy Pre-Operative Diagnosis: Acute cholecystitis Post-Operative Diagnosis: Same Estimated Blood Loss: scant Surgeon/Allergy And Immunology Chief: Dionte Vasquez M.D./Jeanette HERNANDEZ Anesthesia: general endotracheal tube Specimens: Gallbladder Operative/Procedure Note Note: After consent she is brought to the operating room and laid supine. Gen. anesthesia was obtained and her abdomen was prepped and draped. The skin below the umbilicus was infiltrate local anesthesia and a curvilinear incision made sharply. We dissected down to the fascia bluntly and grasped with Catalina's. Fasciotomies crated sharply and stay sutures placed. The peritoneum was entered sharply and a blunt Valadez port was placed. Pneumoperitoneum was achieved. 3, 5 mm ports were placed in the epigastrium and right upper quadrant after local anesthesia was instilled and under direct vision the camera. She's placed in reverse Trendelenburg and rotated towards the left. The gallbladder is identified and grasped at the dome. It was retracted towards the head. There were dense adhesions to the undersurface which were taken down bluntly. Glynn 's pouch was identified and grasped and retracted laterally. The triangle of Calot was then dissected of areolar tissue with cautery and blunt dissection. The artery was medial. It was clipped ligated due to hemorrhage. Cystic duct was then circumferentially dissected and the triangle cleared. The duct was then doubly ligated with clips. Gallbladder is removed from the fossa with electrocautery. His placed in Endo Catch bag and cinched up. Prep quadrant was suction irrigated normal saline. Hemostasis was adequate. The ports were delivered the gallbladder passed off the field. The fascia was closed with 0 Vicryl suture. Skin incisions closed with 4-0 Vicryl. Due to adhesive allergy the skin was sealed with Dermabond. Patient tolerated procedure well CC: CARLOS VIRGEN,AUDIE
[2016-06-03 11:15] VITALS: BP 124/86
--- NOTE | 2016-06-03 13:44 | PN- General Surgery ---
Subjective Subjective: The patient was seen this afternoon postoperatively. She reports some mild periumbilical tenderness but is otherwise comfortable. She has tolerated a diet without nausea and is eager to go home. Objective Vital Signs and I&Os Vital Signs Date Time Temp Pulse Resp B/P Pulse O2 O2 Flow FiO2 Ox Delivery Rate 06/03 0020 97.6 57 18 100/68 94 Room Air 06/02 2200 97.8 56 18 96/60 95 Room Air 06/02 2126 96.7 60 16 115/57 96 Room Air 06/02 1916 Room Air 06/02 1755 96.8 73 16 107/67 95 Room Air Intake & Output 06/03 1600 06/03 0800 06/03 0000 06/02 1600 06/02 0800 06/02 0000 Intake Total 840 1435 Output Total Balance 840 1435 Intake, IV 600 1075 Intake, Oral 240 360 Patient 264 lb Weight Physical Exam: Gen.: Alert and obvious distress Skin: Warm and dry without jaundice Abdomen: Soft, obese, appropriate incisional tenderness, bowel sounds positive. Port sites are clean, dry, and intact without signs of infection. Extremities: Bilateral lower extremities are warm without calf tenderness or significant edema. Assessment/Plan Assessment/Plan Assessment: 18-year-old female status post laparoscopic cholecystectomy. Postoperative patient is pressing as expected, her pain is under adequate control, she is tolerating diet without nausea. Plan: Continue current pain regiment Out of bed ambulate GI and DVT prophylaxis Discharge home Core Measures/Miscellaneous Venous Thromboembolism VTE Risk Factors: Obesity, Surgery VTE Contraindications: No Contraindications VTE Prophylaxis Ordered Inpt Mech & Pharm VTE Diagnosis: No VTE Type: NONE VTE Confirmed by (Test): NONE Beta Sondra Is Beta Sondra a Home Med? No Antibiotics Is Patient on Antibiotics? No
== END 2016-06-03 15:20 ==
LOC: ENRESERVTM → ENRESERVDT → ERH 17:46 → ENPENDDIS 20:28 → ERHI 20:28 → 2NB 20:28
PROVIDERS: Emergency Medicine; ADMIT Surgery
DX: K80.80 Other cholelithiasis without obstruction (principal); E03.9 Hypothyroidism, unspecified; F41.9 Anxiety disorder, unspecified; F32.9 Major depressive disorder, single episode, unspecified; F43.10 Post-traumatic stress disorder, unspecified; F17.200 Nicotine dependence, unspecified, uncomplicated
CPT/HCPCS: 82436; 88304; 96374; 96375; 96376; C9399; J0131; J1200; J1644; J2405; J7042